=== PATIENT | female | born 1950 | race Caucasian/White ===

== ENCOUNTER → 2016-03-30 | Outpatient (CLI) | payer OTHER ==
[~2016-03-30] MED LIST: ACETAMINOPHEN-1 EAC1 PO; AQUACEL AG FOA1 EAC7 TP; ATORVASTATIN CA40 MG PO; AZOR 5-40 MG T1 EACH PO; BACLOFEN 10MG T10 MG PO; CIPRO500 MG PO; CRESTOR PO; ESTRACE0.5 MG; FENTANYL PA50 MCG/HR TRANSDERM; FLAGYL500 MG PO; GABAPENTIN 100100 MG PO; KEPPRA 500 MG500 M1 PO; LASIX 40 MG TAB40 M2 PO; LEVOTHYROXINE0.05 MG PO; LEXAPRO 10 MG T10 M1 PO; LIPITOR40 MG PO; LOTREL 5-40 MG1 EACH; MINOCIN50 MG PO; MINOCYCLINE 5050 M1; MULTI VITAMIN1 EACH PO; OMEPRAZOLE40 MG PO; OXYCODONE HCL5 M1; PERCOCET PO; PHENERGAN 25 MG25 M1 PO; PREDNISOLONE 5 M5 MG PO; TRAMADOL 50 MG50 MG PO; TRINATE TABLET1 TAB PO; TYLENOL325 MG PO; VITAMIN D 5050000 I1 PO; VITAMIN D5000 UNIT PO; VITAMINC500 PO
== END ==
LOC: HYPER 03-14 07:14
DX: L89.890 Pressure ulcer of other site, unstageable (principal); L97.521 Non-pressure chronic ulcer of other part of left foot limited to breakdown of skin; M86.472 Chronic osteomyelitis with draining sinus, left ankle and foot; M20.42 Other hammer toe(s) (acquired), left foot; I73.00 Raynaud's syndrome without gangrene; L94.0 Localized scleroderma [morphea]; Z87.891 Personal history of nicotine dependence

== ENCOUNTER → 2016-07-27 | Outpatient (CLI) | payer OTHER, MEDICARE ==
[~2016-07-27] MED LIST changes: +DAKIN'S473 M1 MUCOUS MEM; +DIOVAN 80 MG TA80 M1 PO; +NITRO-BID30 GM TD; +NORVASC5 MG PO
== END ==
LOC: HYPER 07:01
DX: S31.101A Unspecified open wound of abdominal wall, left upper quadrant without penetration into peritoneal cavity, initial encounter (principal); I73.00 Raynaud's syndrome without gangrene; L94.0 Localized scleroderma [morphea]; I10 Essential (primary) hypertension; Z87.891 Personal history of nicotine dependence; Z72.89 Other problems related to lifestyle; W06.XXXA Fall from bed, initial encounter; Y93.89 Activity, other specified; Y92.89 Other specified places as the place of occurrence of the external cause; Y99.8 Other external cause status

== ENCOUNTER 2016-10-10 19:30 | Emergency (ER) | payer OTHER, MEDICARE ==
[~2016-10-10] VITALS: Ht 172.7 cm; Wt 74.8 kg
[2016-10-10] MEDS ORDERED: NEURONTIN 300300 M1 (20:02)
[2016-10-10] MEDS ORDERED: KEFLEX500 MG PO (20:26)
[2016-10-10 20:30] VITALS: BP 144/65
== END 2016-10-10 20:42 | disposition home or self-care (01) ==
LOC: ER 19:30
DX: S51.011A Laceration without foreign body of right elbow, initial encounter (principal); S80.01XA Contusion of right knee, initial encounter; S60.412A Abrasion of right middle finger, initial encounter; F10.99 Alcohol use, unspecified with unspecified alcohol-induced disorder; Z90.710 Acquired absence of both cervix and uterus; W01.0XXA Fall on same level from slipping, tripping and stumbling without subsequent striking against object, initial encounter; Y93.01 Activity, walking, marching and hiking; Y92.89 Other specified places as the place of occurrence of the external cause; Y99.8 Other external cause status

== ENCOUNTER → 2016-10-19 | Outpatient (CLI) | payer OTHER, MEDICARE ==
[~2016-10-19] MED LIST changes: +KEFLEX500 MG PO; +NEURONTIN 300300 M1
== END ==
LOC: HYPER 07:24
DX: S51.001A Unspecified open wound of right elbow, initial encounter (principal); S61.202A Unspecified open wound of right middle finger without damage to nail, initial encounter; I73.00 Raynaud's syndrome without gangrene; L94.0 Localized scleroderma [morphea]; I10 Essential (primary) hypertension; Z87.891 Personal history of nicotine dependence; Z90.710 Acquired absence of both cervix and uterus; X58.XXXA Exposure to other specified factors, initial encounter; Y93.89 Activity, other specified; Y92.89 Other specified places as the place of occurrence of the external cause; Y99.8 Other external cause status

== ENCOUNTER → 2016-11-09 | Outpatient (CLI) | payer OTHER, MEDICARE | LOC: HYPER 07:04 | DX: S51.001D Unspecified open wound of right elbow, subsequent encounter (principal); S61.202D Unspecified open wound of right middle finger without damage to nail, subsequent encounter; I73.00 Raynaud's syndrome without gangrene; L94.0 Localized scleroderma [morphea]; I10 Essential (primary) hypertension; H26.9 Unspecified cataract; Z87.891 Personal history of nicotine dependence; Z90.710 Acquired absence of both cervix and uterus; Z72.89 Other problems related to lifestyle; W19.XXXD Unspecified fall, subsequent encounter ==

== ENCOUNTER → 2016-11-30 | Outpatient (CLI) | payer OTHER, MEDICARE | LOC: HYPER 07:01 | DX: S60.412D Abrasion of right middle finger, subsequent encounter (principal); S50.311D Abrasion of right elbow, subsequent encounter; I73.00 Raynaud's syndrome without gangrene; L94.0 Localized scleroderma [morphea]; I10 Essential (primary) hypertension; Z90.710 Acquired absence of both cervix and uterus; Z87.891 Personal history of nicotine dependence; Z72.89 Other problems related to lifestyle; X58.XXXD Exposure to other specified factors, subsequent encounter ==

== ENCOUNTER → 2016-12-05 | Outpatient (CLI) | payer OTHER, MEDICARE | LOC: MRI 09:45 | DX: M81.0 Age-related osteoporosis without current pathological fracture (principal); M86.8X8 Other osteomyelitis, other site ==

== ENCOUNTER → 2016-12-12 | Outpatient (CLI) | payer OTHER, MEDICARE | LOC: HYPER 07:04 | DX: S50.311D Abrasion of right elbow, subsequent encounter (principal); I73.00 Raynaud's syndrome without gangrene; L94.0 Localized scleroderma [morphea]; I10 Essential (primary) hypertension; Z90.710 Acquired absence of both cervix and uterus; Z98.42 Cataract extraction status, left eye; Z87.891 Personal history of nicotine dependence; Z72.89 Other problems related to lifestyle; W19.XXXD Unspecified fall, subsequent encounter ==

== ENCOUNTER → 2017-01-01 | Outpatient (CLI) | payer OTHER, MEDICARE | LOC: HYPER 07:01 | DX: S51.001D Unspecified open wound of right elbow, subsequent encounter (principal); L94.0 Localized scleroderma [morphea]; I73.00 Raynaud's syndrome without gangrene; I10 Essential (primary) hypertension; Z87.891 Personal history of nicotine dependence; X58.XXXD Exposure to other specified factors, subsequent encounter ==

== ENCOUNTER → 2017-01-09 | Outpatient (CLI) | payer OTHER, MEDICARE | LOC: ULTRA 14:25 | DX: R19.00 Intra-abdominal and pelvic swelling, mass and lump, unspecified site (principal) ==

== ENCOUNTER 2018-01-12 11:24 | Emergency (ER) | payer OTHER, MEDICARE ==
[~2018-01-12] VITALS: Ht 170.2 cm; Wt 74.8 kg
[~2018-01-12 11:24] MED LIST changes: +NORCO 5-325 TA1 EACH PO
[2018-01-12 13:04] VITALS: BP 135/79
== END 2018-01-12 13:05 | disposition home or self-care (01) ==
LOC: ER 11:24
DX: S20.211A Contusion of right front wall of thorax, initial encounter (principal); F10.10 Alcohol abuse, uncomplicated; Z90.710 Acquired absence of both cervix and uterus; Z87.891 Personal history of nicotine dependence; W18.30XA Fall on same level, unspecified, initial encounter; Y93.89 Activity, other specified; Y92.89 Other specified places as the place of occurrence of the external cause; Y99.8 Other external cause status

== ENCOUNTER → 2018-02-21 | Outpatient (CLI) | payer OTHER, MEDICARE | LOC: RAD 15:25 | DX: Z12.31 Encounter for screening mammogram for malignant neoplasm of breast (principal) ==

== ENCOUNTER 2018-08-14 12:35 | Emergency (ER) | payer OTHER, MEDICARE ==
[~2018-08-14] VITALS: Ht 170.2 cm; Wt 72.6 kg
[2018-08-14] MEDS ORDERED: LEVSIN0.125 MG PO (14:33)
[2018-08-14] MEDS ORDERED: CRESTOR40 MG PO (14:35)
[2018-08-14 17:55] VITALS: BP 134/83
--- NOTE | 2018-08-15 16:10 | EKG ---
[address] [place] [address] ELECTROCARDIOGRAM REPORT Name: CECY OVIEDO [id number] ������������������ Admission: 08/14/18 ������������������ Attend Phys: Discharge: 08/14/18 ������������������ Date of : 46 Report #: [id number] ����������������������������������������������������������������� [id number] THIS REPORT FOR: //name// [facility] ED Test Date: 2018-08-14 Test Time: 17:54:31 Pat Name: CECY OVIEDO Department: Room: Gender: F Bicycle Racer: shamika : 1950 Requested By: Arianne West Order Number: [id number] MD: Vipin Paniagua Measurements Intervals [place] Rate: 72 P: 75 IA: 171 QRS: 30 QRSD: 91 T: 38 QT: 431 QTc: 472 Interpretive Statements Sinus rhythm Ventricular premature complex RSR' in V1 or V2, right VCD Nonspecific ST segment abnormalities Compared to ECG 07/10/2017 14:52:45 No significant change Electronically Signed On 08-15-2018 16:10:42 CDT by Vipin Paniagua [email or web address] ��������������������������������������������� <ELECTRONICALLY SIGNED> ���������������������������������������� By: Vipin Paniagua MD ��������������������������������������������� 08/15/18 1610 1754 1754 MD MEHUL Mauro
== END 2018-08-14 17:55 | disposition home or self-care (01) ==
LOC: ER 12:35
DX: S06.0X0A Concussion without loss of consciousness, initial encounter (principal); S00.12XA Contusion of left eyelid and periocular area, initial encounter; Z90.710 Acquired absence of both cervix and uterus; Z87.891 Personal history of nicotine dependence; W18.39XA Other fall on same level, initial encounter; Y93.89 Activity, other specified; Y92.89 Other specified places as the place of occurrence of the external cause; Y99.8 Other external cause status

== ENCOUNTER → 2019-04-03 | Outpatient (CLI) | payer OTHER, MEDICARE ==
[~2019-04-03] MED LIST changes: +CRESTOR40 MG PO; +LEVSIN0.125 MG PO
== END ==
LOC: NUC 01:45 → MRI 13:03 → NUC 15:19
DX: Z12.31 Encounter for screening mammogram for malignant neoplasm of breast (principal); M80.88XA Other osteoporosis with current pathological fracture, vertebra(e), initial encounter for fracture; M47.816 Spondylosis without myelopathy or radiculopathy, lumbar region; M48.061 Spinal stenosis, lumbar region without neurogenic claudication; M71.38 Other bursal cyst, other site

== ENCOUNTER → 2019-11-17 | Outpatient (CLI) | payer OTHER | LOC: MRI 14:06 | PROVIDERS: ATTEND Physical Medicine & Rehabilitation Sports Medicine | DX: M51.34 Other intervertebral disc degeneration, thoracic region (principal); M47.814 Spondylosis without myelopathy or radiculopathy, thoracic region; M48.54XA Collapsed vertebra, not elsewhere classified, thoracic region, initial encounter for fracture; M40.04 Postural kyphosis, thoracic region; M25.78 Osteophyte, vertebrae; M48.04 Spinal stenosis, thoracic region ==

== ENCOUNTER → 2020-01-27 | Outpatient (CLI) | payer OTHER, MEDICARE | LOC: CAT 07:48 | PROVIDERS: ATTEND Internal Medicine Rheumatology | DX: R91.1 Solitary pulmonary nodule (principal); I25.10 Atherosclerotic heart disease of native coronary artery without angina pectoris; M34.9 Systemic sclerosis, unspecified ==

== ENCOUNTER → 2020-04-13 | Outpatient (CLI) | payer OTHER, MEDICARE | LOC: BC 09:42 | PROVIDERS: ATTEND Nurse Practitioner Obstetrics & Gynecology | DX: Z12.31 Encounter for screening mammogram for malignant neoplasm of breast (principal) ==

== ENCOUNTER → 2020-10-04 | Outpatient (CLI) | payer OTHER, MEDICARE | LOC: RAD 16:03 | PROVIDERS: ATTEND Family Medicine | DX: R10.84 Generalized abdominal pain (principal); R06.02 Shortness of breath; I70.0 Atherosclerosis of aorta ==

== ENCOUNTER → 2020-10-27 | Outpatient (CLI) | payer OTHER, MEDICARE | LOC: SJCVC 14:19 | PROVIDERS: ATTEND Internal Medicine | DX: R94.31 Abnormal electrocardiogram [ECG] [EKG] (principal); R06.02 Shortness of breath; M34.1 CR(E)ST syndrome; I12.9 Hypertensive chronic kidney disease with stage 1 through stage 4 chronic kidney disease, or unspecified chronic kidney disease; N18.32 Chronic kidney disease, stage 3b; E83.110 Hereditary hemochromatosis; E78.5 Hyperlipidemia, unspecified; E78.00 Pure hypercholesterolemia, unspecified; Z90.49 Acquired absence of other specified parts of digestive tract; Z79.899 Other long term (current) drug therapy; Z87.891 Personal history of nicotine dependence ==

== ENCOUNTER → 2020-11-11 | Outpatient (CLI) | payer OTHER, MEDICARE | LOC: SJCVCIMAG 09:59 | PROVIDERS: ATTEND Internal Medicine | DX: R06.02 Shortness of breath (principal); E78.5 Hyperlipidemia, unspecified; I10 Essential (primary) hypertension; Z87.891 Personal history of nicotine dependence; Z79.899 Other long term (current) drug therapy ==

== ENCOUNTER 2020-12-12 15:03 | Emergency (ER) | payer OTHER, MEDICARE ==
[~2020-12-12] VITALS: Ht 170.2 cm; Wt 65.8 kg
[2020-12-12 16:16] LABS: HEMATOCRIT 43.5 % (37.0-47.0); HEMOGLOBIN 14.4 gm/dL (12.0-15.0); MCH 32.5 pg (26.0-34.0); MCV 98.6 fL (80.0-100.0); RBC 4.41 mil/uL (4.20-5.00); RDW 13.4 % (10.5-14.5); WBC 6.7 thou/uL (4.0-11.0)
[2020-12-12 16:29] LABS: URINE BILIRUBIN NEGATIVE (Negative); URINE BLOOD 2+ (Negative); URINE CLARITY SL CLOUDY; URINE COLOR YELLOW; URINE GLUCOSE-RANDOM* NEGATIVE (Negative); URINE KETONES NEGATIVE (Negative); URINE LEUKOCYTES-REFLEX TRACE (Negative); URINE NITRITE-REFLEX NEGATIVE (Negative); URINE PROTEIN (DIPSTICK) TRACE (Negative); URINE SPECIFIC GRAVITY 1.015 (1.005-1.035); URINE UROBILINOGEN 0.2 E.U./dl (0.2-1.0)
[2020-12-12 16:37] LABS: CALCIUM 9.2 mg/dL (8.5-10.1); CREATININE 2.2 mg/dL (0.6-1.0); POTASSIUM 3.2 mmol/L (3.5-5.1)
[2020-12-12 16:51] LABS: ALBUMIN 2.7 g/dL (3.4-5.0); TOTAL BILIRUBIN 0.5 mg/dL (0.2-1.0); TOTAL PROTEIN 6.1 g/dL (6.4-8.2)
[2020-12-12 16:54] LABS: SQUAMOUS 4-10 Moderate /LPF (0-3)
[2020-12-12 16:55] LABS: URINE RBC 3-10 Few /HPF (NONE SEEN); URINE WBC-REFLEX 0-5 Rare /HPF (0-5)
[2020-12-12 16:56] LABS: BACTERIA-REFLEX 1-9 Few /HPF (None Seen); CRYSTALS None Seen /LPF (None Seen)
[2020-12-12 19:26] LABS: CALCIUM 8.7 mg/dL (8.5-10.1); POTASSIUM 3.3 mmol/L (3.5-5.1)
[2020-12-12 20:17] VITALS: BP 121/65
== END 2020-12-12 20:18 | disposition home or self-care (01) ==
LOC: ER 15:03
PROVIDERS: Nurse Practitioner Family
DX: E87.1 Hypo-osmolality and hyponatremia (principal); R19.7 Diarrhea, unspecified; R10.84 Generalized abdominal pain; N18.4 Chronic kidney disease, stage 4 (severe); Z90.710 Acquired absence of both cervix and uterus; Z79.899 Other long term (current) drug therapy; Z88.1 Allergy status to other antibiotic agents; Z87.891 Personal history of nicotine dependence

== ENCOUNTER 2021-02-21 15:30 | Inpatient (IN) | payer OTHER, MEDICARE ==
[~2021-02-21] VITALS: Ht 167.6 cm; Wt 61.5 kg
[2021-02-21 15:48] VITALS: BP 105/62
[2021-02-21] MEDS ORDERED: BACTRIM DS TAB1 EACH PO (16:26)
[2021-02-21] MEDS ORDERED: OXYCODONE-APAP1 EAC4 PO (16:27)
[2021-02-21] MEDS ORDERED: NEURONTIN 300M300 M2 PO (16:27)
[2021-02-21] MEDS ORDERED: FLEXERIL PO (16:28)
[2021-02-21] MEDS ORDERED: FAMOTIDINE40 MG PO (16:28)
[2021-02-21 18:31] LABS: HEMATOCRIT 39.6 % (37.0-47.0); HEMOGLOBIN 13.4 gm/dL (12.0-15.0); MCH 32.9 pg (26.0-34.0); MCHC 33.8 g/dL (28.0-37.0); MCV 97.5 fL (80.0-100.0); PLATELET COUNT 231 thou/uL (150-400); RBC 4.06 mil/uL (4.20-5.00); RDW 15.3 % (10.5-14.5); WBC 20.8 thou/uL (4.0-11.0)
[2021-02-21 18:47] LABS: CALCIUM 9.1 mg/dL (8.5-10.1); CREATININE 4.5 mg/dL (0.6-1.0); POTASSIUM 4.2 mmol/L (3.5-5.1)
[2021-02-21 18:57] LABS: MAGNESIUM 2.1 mg/dL (1.8-2.4); TOTAL BILIRUBIN 0.4 mg/dL (0.2-1.0)
[2021-02-21 20:14] LABS: ABSOLUTE NEUTROPHILS 18.5 thou/uL (1.4-8.2); PLATELET ESTIMATE NORMAL
[2021-02-21 20:27] LABS: URINE BILIRUBIN NEGATIVE (Negative); URINE BLOOD 1+ (Negative); URINE CLARITY CLEAR; URINE COLOR YELLOW; URINE GLUCOSE-RANDOM* NEGATIVE (Negative); URINE KETONES NEGATIVE (Negative); URINE LEUKOCYTES-REFLEX NEGATIVE (Negative); URINE NITRITE-REFLEX NEGATIVE (Negative); URINE PROTEIN (DIPSTICK) TRACE (Negative); URINE SPECIFIC GRAVITY 1.025 (1.005-1.035); URINE UROBILINOGEN 0.2 E.U./dl (0.2-1.0)
[2021-02-21 20:29] LABS: SQUAMOUS 0-3 Few /LPF (0-3); URINE WBC-REFLEX None Seen /HPF (0-5)
[2021-02-21 20:30] LABS: BACTERIA-REFLEX None Seen /HPF (None Seen); CRYSTALS None Seen /LPF (None Seen); FINE GRANULAR CASTS 0-3 Few /LPF (None Seen); URINE RBC 1-2 Rare /HPF (NONE SEEN)
[2021-02-21 20:31] LABS: COARSE GRANULAR CASTS 0-3 Few /LPF (None Seen)
[2021-02-22 02:44] LABS: HCO3 14.8 mmol/L (22.0-26.0); PCO2 26.7 mmHg (35.0-45.0); PO2 111.6 mmHg (80.0-100.0); pH 7.362 (7.360-7.450)
[2021-02-22 06:56] VITALS: BP 135/73
--- NOTE | 2021-02-22 07:17 | EKG ---
[address] [place] [address] ELECTROCARDIOGRAM REPORT Name: CECY OVIEDO Room #: 170-3 ADM IN M.R.#: [id number] Admission: 02/21/21 Attend Phys: Tae Recio MD Discharge: Date of : 46 Report #: [id number] [facility] ED Test Date: 2021-02-21 Test Time: 17:54:58 Pat Name: CECY PREET Department: Room: 170 Gender: F Education Instructor: amira : 1950 Requested By: Jaz Orellana Order Number: [id number] MD: Georges Villatoro Measurements Intervals [place] Rate: 106 P: 75 CO: 182 QRS: -57 QRSD: 66 T: 9 QT: 390 QTc: 518 Interpretive Statements Sinus tachycardia Abnormal R-wave progression, early transition Borderline repolarization abnormality Compared to ECG 08/14/2018 17:54:31 Sinus rhythm no longer present Ventricular premature complex(es) no longer present Electronically Signed On 02-22-2021 7:17:28 BRUSHER MACHINE by Georges Villatoro [email or web address] <ELECTRONICALLY SIGNED> By: Georges Villatoro MD, [facility] 02/22/21 0717 53 53 Georges Villatoro MD, [facility] /EPI
[2021-02-22 10:11] VITALS: BP 123/77
[2021-02-22 10:34] VITALS: BP 124/70
[2021-02-22 11:50] LABS: CALCIUM 7.9 mg/dL (8.5-10.1); CALCIUM 8.3 mg/dL (8.5-10.1); CREATININE 4.3 mg/dL (0.6-1.0); POTASSIUM 3.9 mmol/L (3.5-5.1); POTASSIUM 4.1 mmol/L (3.5-5.1)
[2021-02-22 11:54] LABS: ALBUMIN 1.7 g/dL (3.4-5.0); PHOSPHORUS 4.7 mg/dL (2.5-4.9)
[2021-02-22 12:16] LABS: BE(vivo) -5.8 mmol/L (-2 to +3); HCO3 18.4 mmol/L (22.0-26.0); PCO2 31.9 mmHg (35.0-45.0); PO2 124.7 mmHg (80.0-100.0); pH 7.378 (7.360-7.450); sO2 98.5 % (92.0-98.0)
--- NOTE | 2021-02-22 13:24 | EKG ---
[address] [address] ELECTROCARDIOGRAM REPORT Name: PREETCECY Room #: 442-P ADM IN M.R.#: [id number] Admission: 02/21/21 Attend Phys: Tae Recio MD Discharge: Date of : 46 Report #: [id number] [facility] ED Test Date: 2021-02-22 Test Time: 07:26:20 Pat Name: CECY OVIEDO Department: Room: 442 Gender: F Reworker: SACHIN : 1950 Requested By: Tae Recio Order Number: [id number] MD: Georges Villatoro Measurements Intervals [place] Rate: 132 P: 93 [place]: 173 QRS: -61 QRSD: 84 T: 46 QT: 300 QTc: 445 Interpretive Statements Sinus tachycardia Atrial premature complex Inferior infarct, old Compared to ECG 02/21/2021 17:54:58 Atrial premature complex(es) now present Electronically Signed On 02-22-2021 13:24:48 PROFESSIONAL SOCCER PLAYER by Georges Villatoro [email or web address] <ELECTRONICALLY SIGNED> By: Georges Villatoro MD, [facility] 02/22/21 1324 D: 11/725 5 Georges Villatoro MD, FAC /EPI
[2021-02-22 13:39] LABS: HEMATOCRIT 36.8 % (37.0-47.0); HEMOGLOBIN 11.8 gm/dL (12.0-15.0); MCH 31.8 pg (26.0-34.0); MCHC 32.2 g/dL (28.0-37.0); MCV 98.9 fL (80.0-100.0); PLATELET COUNT 202 thou/uL (150-400); RBC 3.72 mil/uL (4.20-5.00); RDW 15.5 % (10.5-14.5); WBC 25.4 thou/uL (4.0-11.0)
[2021-02-22 14:42] LABS: ABSOLUTE NEUTROPHILS 23.9 thou/uL (1.4-8.2)
--- NOTE | 2021-02-22 14:45 | NUR ---
She Out of room for test. New to unit today from ED. Called her spouse # [phone], that is his work number and is not there today. Other number for her spouse listed in not at working number. Noted she been having some declines at home, falls and pain. using wheel chair at home. Son has moved in to help out his mom. Will cont following as needed for dc needs.
[2021-02-22 16:30] VITALS: BP 110/54
--- NOTE | 2021-02-22 17:53 | NUR ---
PATIENT ADMIT TO [facility] AT 1040. AWAKE, LETHARGIC. TOLERATED ON 3L/NC. VSS, AFEBRILE. WOUND PICS TOOK. FAMILY AT BED SIDE. ST ON MONITOR, WILL KEEP MONITOR.
[2021-02-22 21:06] LABS: COMPLEMENT-C3 133 mg/dL (82-167); COMPLEMENT-C4 25 mg/dL (12-38)
[2021-02-22 21:30] VITALS: BP 110/55
[2021-02-22 22:46] LABS: INR 1.14; PROTIME 12.3 Seconds (10.5-12.1)
[2021-02-23 01:26] LABS: HEMATOCRIT 33.6 % (37.0-47.0); HEMOGLOBIN 10.9 gm/dL (12.0-15.0); MCH 32.2 pg (26.0-34.0); MCHC 32.6 g/dL (28.0-37.0); MCV 98.9 fL (80.0-100.0); RBC 3.4 mil/uL (4.20-5.00); RDW 15.3 % (10.5-14.5); WBC 24.5 thou/uL (4.0-11.0)
[2021-02-23 01:30] LABS: CALCIUM 7.4 mg/dL (8.5-10.1); CREATININE 4.2 mg/dL (0.6-1.0); POTASSIUM 4.2 mmol/L (3.5-5.1)
--- NOTE | 2021-02-23 06:10 | NUR ---
AT BEGINNING OF HS SHIFT PATIENT IS RECEIVING A ARTERIAL SCAN. WHILE PERFORMING TECH NOTED THAT PATIENT HAD A CLOT IN THE LEFT GROIN AREA. ORDER WAS ENTERED TO ALSO DO A VENOUS ULTRASOUND. NOTED ADDITIONAL BLOOD CLOT BEHING RIGHT KNEE AREA. NOTIFIED SUPERVISOR ELECTRONICS ASSEMBLY REGARDING OF FINDINGS. ALSO NOTIFIED ZEB. RECEIVED ORDERS TO START HEPARIN DRIP. PATIENT IS DISORIENTED AND VERY LETHARGIC. SHE IS 94% ON 3L. SHE IS BREATHING ABOUT 24-26 RPM. PATIENT IS UNABLE TO FOLLOW SIMPLE COMMANDS OR INSTRUCTIONS. APPROXIMATELTY 0430 PATIENT APPEARS TO BE EXPERIENCING SOME AUDIO HALLUCINATIONS. SHE IS CALLING FOR SOMEBODY THAT IS NOT PRESENT IN ROOM. PATIENT WILL OPEN HER EYES NOW BUT REMAINS VERY CONFUSED. SHE CAN NOT FORM COMPLETE SENTENCES. SHE APPEARS TO BE IN PAIN AND STATES THAT HER LEG HURTS. NOTIFIED SUPERVISOR ELECTRON[employer] ASSEMBLY PRESCHOOL HEAD TEACHER AND RECEIVED ORDER FOR FENTANYL. 0600 PATIENT CONTINUES TO MOAN AND TALK NOT MAKING SENSE. HER VITALS REMAIN STABLE. ATTEMPTED TO GIVE PATIENT SOME WATER BUT SHE IS UNABLE TO DECIPHER THE STRAW. CLEANSED PATIENT WOUNDS. WILL CONTINUE TO MONITOR.
[2021-02-23 06:33] VITALS: BP 117/64
[2021-02-23 07:26] VITALS: BP 99/49
[2021-02-23 10:08] LABS: ANA INTERPRETATION Positive (Negative)
--- NOTE | 2021-02-23 10:58 | NUR ---
A/O X 1 SELF. BEDOUND. 3 L O2 VIA NASAL CANNULA. LEFT FOEARM AND LEFT WRIST IV. LEFT WRIST HAS HEPARIN INFUSION @ 17 MLS/KG/HR. APTT RECHECK @ 0600 49.1, NEXT RECHECK IS AT NOON. SR ON TELE. BUTTOCK WOUND BETADINE APPILED, RIGHT GREAT TOE NECROTIC AND BOTTOM OF FOOT NECROTIC, MUMBLES RESPONSES, KEEPS EYES CLOSE. NS INFUSING @ 150 MLS/HR. HUGO IN PLACE- URINE YELLOW. REQUESTED TRANSFER TO CCU WHERE SHE CAN BE MONITORED CLOSER AND AWAITING BED ON CCU. MRI OF LUMBAR SPINE REQUIRES THAT THE PATIENT IS TURNED OFF OF IV PUMP FOR AROUND 40 MINS, DR. MELCHOR PAGED TO MAKE AWARE OF THIS AND TO SEE OF IF IT CAN BE POSTPONE TILL PATIENT IS OFF OF HEAPARIN DRIP. AWAITING CALL BACK.
--- NOTE | 2021-02-23 11:02 | 2DMMODE ---
[facility] [place] [address] 2 D/M-MODE ECHOCARDIOGRAM Name: CECY OVIEDO ANN Room #: 442-P ADM IN M.R.#: [id number] Admission: 02/21/21 Attend Phys: Tae Recio MD Discharge: Date of : 46 Report #: [id number] THIS REPORT FOR: cc: Ileana Roman MD, Nora P. MD Santiago, Patrick MD [facility] ~ APPROVED REPORT Study performed: 02/23/2021 09:19:53 EXAM: Comprehensive 2D, Doppler, and color-flow Echocardiogram Patient Location: Bedside Room #: 442 Status: routine BSA: 1.63 HR: 98 bpm BP: 99/49 mmHg Rhythm: NSR Other Information Study Quality: Adequate Indications Congestive Heart Failure Dyspnea Hypertension/HDD 2D Dimensions RVDd: 32.11 mm IVSd: 9.68 (7-11mm) LVOT Diam: 20.66 (18-24mm) LVDd: 39.96 mm PWd: 9.63 (7-11mm) Ascending Ao: 26.63 (22-36mm) LVDs: 30.56 (25-40mm) Left Atrium: 32.30 (27-40mm) Aortic Root: 28.85 mm IVC: 25.00 mm Volumes Left Atrial Volume (Systole) Single Plane 4CH: 28.70 mL Single Plane 2CH: 32.55 mL LA ESV Index: 21.00 mL/m2 Aortic Valve AoV Peak Osorio.: 1.45 m/s AO Peak Gr.: 8.36 mmHg LVOT Max P.74 mmHg [facility] [address] [address] 2 D/M-MODE ECHOCARDIOGRAM Name: CECY OVIEDO Room #: 442-P [facility] IN ..#: [id number] Admission: 02/21/21 Attend Phys: Stoney Leo Discharge: Date of : 46 Report #: [id number] LVOT Max V: 0.97 m/s JADA Vmax: 2.24 cm2 Mitral Valve E/A Ratio: 0.9 MV Decel. Time: 295.66 ms MV E Max Osorio.: 0.68 m/s MV A Osorio.: 0.79 m/s MV PHT: 85.74 ms IVRT: 124.57 ms Pulmonary Valve PV Peak Osorio.: 0.87 m/s PV Peak Gr.: 3.02 mmHg Pulmonary Vein P Vein S: 0.27 m/s P Vein A: 0.24 m/s P Vein D: 0.26 m/s P Vein A Dur.: 93.4 msec P Vein S/D Ratio: 1.04 Tricuspid Valve TR Peak Osorio.: 2.45 m/s TR Peak Gr.: 23.93 mmHg PA Pressure: 34.00 mmHg Left Ventricle The left ventricle is normal size. There is normal left ventricular wall thickness. Left ventricular systolic function is mildly decreased. LVEF is 45%. Grade I - abnormal relaxation pattern. Right Ventricle The right ventricle is normal size. The right ventricular systolic function is normal. Atria The left atrium size is normal. The right atrium size is normal. Aortic Valve The aortic valve is normal in structure. No aortic regurgitation is present. There is no aortic valvular stenosis. Mitral Valve The mitral valve is normal in structure. Trace mitral regurgitation. No evidence of mitral valve stenosis. Tricuspid Valve [facility] [address] [place] [address] 2 D/M-MODE ECHOCARDIOGRAM Name: CECY OVIEDO Room #: 442-P ADM IN .R.#: [id number] Admission: 02/21/21 Attend Phys: Stoney Leo Discharge: Date of : 46 Report #: [id number] The tricuspid valve is normal in structure. There is trace tricuspid regurgitation. Estimated PAP 34mmHg. There is mild pulmonary hypertension. Pulmonic Valve The pulmonary valve is normal in structure. There is no pulmonic valvular regurgitation. Great Vessels The aortic root is normal in size. IVC is dilated and collapses <50% with inspiration. Pericardium There is no pericardial effusion. <Conclusion> Normal left ventricle size/wall thickness Mild global hypokinesis ejection fraction 45% Grade 1 diastolic dysfunction Normal right ventricle size/function Normal atrial size Normal aortic/mitral valve structure and function Trace tricuspid valve insufficiency Pulmonary systolic pressure estimated 34 mmHg Normal aortic root size No pericardial effusion <ELECTRONICALLY SIGNED> By: Georges Villatoro MD, FACC 02/23/211101 01 01 Georges Villatoro MD, FACC /INF
[2021-02-23 11:06] VITALS: BP 112/56
--- NOTE | 2021-02-23 13:39 | NUR ---
CRITICAL APTT 89.8 @ 2498. DR. MELCHOR PAGED FOR MAKE AWARE. PER HERPARIN PROTOCAL DRIP REDUCED BY 2 UNITS FROM 17 ML/KG/HR TO 15 MLS/KG/HR. LAURI BERMAN AT BEDSIDE TO CONFIRM THE CHANGE IN RATE. AWAITING CALL BACK FROM DR. MELCHOR. NURSE LOKIE ENGINEER IRINEO CALLED TO MAKE AWARE OF CRITICAL LAB AND PAGE .
[2021-02-23 16:06] VITALS: BP 121/70
--- NOTE | 2021-02-23 17:19 | NUR ---
Case opened to follow for dc planning. Call Center Analyst spoke with pt's spouse Joie this afternoon as he is at bedside. Contact number is their home phone [phone]. Pt was transfered to CCU this afternoon and is on a heprin gtt. She was admitted with JONNY,DVTs and weakness. Her pcp is Dr. Ileana Roman. She has not seen her for some time. Spouse and pt's sister Luci Wallace have been providing care at home and notes a sign decline in function over the past couple of months. They do not leave the pt alone and she has started using a w/c. She can sit her self up on the edge of the bed then her spouse "gets her into the w/c". He notes that they have 2 steps into the home and they can live on the main level. She has bars in the bathroom and has needed increased help with adl's along with gait. He drives and still manages his own business ([employer]) but is at home most of the time with her. Their son Isrrael is here for a few weeks to visit from out of state. Pt's spouse denies any HH, SNF or rehab needs in the past. He states that she will definately need rehab after all this. Acute rehab and SNF discussed. [facility] is following along but therapy evals are on hold due to heprin gtt. Support provided. Pt's spouse to bring in phone numbers for her sister Luci and son Arvind as they are both non working numbers on the chart.
--- NOTE | 2021-02-23 17:20 | HC ---
[facility] [place] [address] CONSULTATION Name: PREETCECY Room #: 208-P ADM IN M.R.#: [id number] Admission: 02/21/21 Attend Phys: Tae Recio MD Discharge: Date of : 46 Report #: [id number] THIS REPORT FOR: cc: Ileana Roman MD, Nora P. MD Althoff, Jeffrey R. MD ~ DATE OF SERVICE: 02/22/2021 CHIEF COMPLAINT: Bilateral lower extremity ulcerations. HISTORY OF PRESENT ILLNESS: This is a 70-year-old female patient who presented to the Emergency Department with increasing weakness and decreased level of consciousness. She was noted to have ulcerations on her feet. I have been asked to see her with regard to wound care. Her is present here in the room, although not able to provide a lot of information. Her son is also present. She has had some decline recently at home and is currently being evaluated. She is not able to provide any information about herself. Per the admitting records, she has a history of chronic kidney disease stage 4, Raynaud's phenomenon, hypertension, hypothyroidism, hyperlipidemia, scleroderma, subarachnoid hemorrhage, CREST syndrome, history of thyroid nodules and depression, possibly some history of pulmonary hypertension. SOCIAL HISTORY: The patient lives at home with her . Uses a wheelchair. No alcohol or tobacco use noted. ALLERGIES: TO CIPRO. MEDICATIONS: Include amlodipine, cyclobenzaprine, ergocalciferol, escitalopram, famotidine, furosemide, gabapentin, levothyroxine, minocycline, Crestor, Bactrim-DS, valsartan. REVIEW OF SYSTEMS: Not obtainable due to the patient's condition. PHYSICAL EXAMINATION: VITAL SIGNS: The patient's vital at this time include temperature 35.6, pulse 121, respiration of 22, blood pressure 124/70. GENERAL: This is a very frail-appearing female patient who appears to have decreased level of consciousness. HEENT: Head is normocephalic. NECK: Supple. LUNGS: Diminished. HEART: Tachycardic. ABDOMEN: Soft, nontender. EXTREMITIES: Lower extremities demonstrate diminished distal pulses. She has dry scaly skin. There is an ulceration and some eschar involving the right great toe plantar aspect as well as the lateral foot and heel. She has a stage [facility] [address] [place] [address] CONSULTATION Name: PREETCECY Room #: 208-P [facility] IN M.R.#: [id number] Admission: 02/21/21 Attend Phys: Tae Recio MD Discharge: Date of : 46 Report #: [id number] I pressure ulceration to the sacral-gluteal region with nonblanching erythema. LABORATORY STUDIES: Include sodium 134, potassium 3.9, chloride 101, CO2 of 19, BUN 53, creatinine 4.3, glucose 92, sodium 128, potassium 4.2, chloride 96. White blood cell count 20,000 with a hemoglobin of 13.4. CLINICAL IMPRESSION: 1. Vascular type ulceration to the right great toe and lateral foot and heel. 2. Stage I pressure ulceration of the sacral-gluteal region. 3. Sepsis. 4. Acute kidney injury versus chronic kidney disease. 5. Generalized debility. 6. Urinary retention. 7. Scleroderma. 8. Hypothyroidism. 9. Severe protein-calorie malnutrition with albumin 1.7. RECOMMENDATIONS: At this point in time, we will recommend Betadine paint to the areas of eschar involving the feet. We will recommend PRAFO boots for pressure prophylaxis. Check arterial Dopplers. She would not be able to at least in the short term have any sort of angiography as I think her renal function would prohibit the use of contrast presently. Recommend barrier cream to the sacral-gluteal region. She will need a low air loss mattress with q. 2 hour turning and positioning. Continue nutritional support. I appreciate being asked to see her in consultation. <ELECTRONICALLY SIGNED> By: Kwesi Zavala MD 02/23/21 1720 1024 1109 Kwesi Zavala MD /nt
[2021-02-23 18:38] LABS: BE(vivo) -10.1 mmol/L (-2 to +3); HCO3 14.6 mmol/L (22.0-26.0); PCO2 28.7 mmHg (35.0-45.0); PO2 107.3 mmHg (80.0-100.0); sO2 97.6 % (92.0-98.0)
[2021-02-23 18:40] LABS: pH 7.333 (7.360-7.450)
--- NOTE | 2021-02-23 19:45 | NUR ---
Pt received to room 208 from 4S around approx. 1600. Pt on 3L NC, crackles, tachypneic. SR/ ST w/ 1AVB on the monitor. Received pt on heparin gtt at 15u/kg/hr. Received pt on 150mL NS, however order this morning changed to 75mL. Notified Dr Recio, per Dr. d/c fluids. Per nephrology, give 1x dose of lasix 60mg IV. Received orders for repeat ABG & CXR d/t change in status from provider. Pt oriented to self or disoriented x4, does not finish sentences when asked questions. Pt cries in room c/o pain & states that people are hurting her when no one is touching her. PRN IV pain medication order received. Pt has wounds to rt grt toe, rt pad of toe, rt heel, redness on buttocks & lt arm.
[2021-02-23 20:00] VITALS: BP 129/86
--- NOTE | 2021-02-23 23:41 | HC ---
[facility] [place] [address] CONSULTATION Name: CECY OVIEDO ANN Room #: 208-P [facility] IN .R.#: [id number] Admission: 02/21/21 Attend Phys: Tae Recio MD Discharge: Date of : 46 Report #: [id number] THIS REPORT FOR: cc: Ileana Roman MD, Nora P. MD Geha, Daniel J. MD ~ DATE OF SERVICE: 02/23/2021 INFECTIOUS DISEASE CONSULTATION REASON FOR CONSULTATION: I was asked to evaluate concerning leukocytosis. HISTORY OF PRESENT ILLNESS: The patient is a 70-year-old who presented to the emergency room on 02/21/2021 with lower extremity weakness, back pain in the setting of chronic kidney disease, scleroderma, hypertension. Over the subsequent 2 days, she has had persistent leukocytosis over 20,000 along with delirium. She has received high dose corticosteroids for her acute on chronic kidney disease with a creatinine up to 4.2. Prior to this, she was on 10 mg of prednisone and given stress steroids on admission. She is now on methylprednisolone 125 mg q.i.d. She has evidence of right lower extremity ischemia and has been on a heparin drip. She remains on oxygen per nasal cannula with CT scan showing bilateral interstitial infiltrates. She denies any cough or sputum production. No chest pain or palpitations. Echocardiogram has revealed mild global hypokinesis with an EF of 45%. She has an MRI scan of her back that is pending. She has previously undergone steroid injection. She had urinary retention and a Sanon catheter has been placed. No change in her scleroderma. She has had persistent ulcers to her right foot. The patient denied any other specific complaints. REVIEW OF SYSTEMS: A 14-point review was negative other than what has been described above. PAST MEDICAL HISTORY: Stage IV chronic kidney disease, scleroderma, Raynaud's, hypertension, hypothyroidism, hyperlipidemia, subarachnoid hemorrhage, CREST syndrome, thyroid nodules, depression, hysterectomy, repair of prolapsed uterus. FAMILY HISTORY: No report of tuberculosis. SOCIAL HISTORY: Lives with her . No current drug or alcohol use. There is report of alcoholism prior to December of this year. ALLERGIES: CIPRO. MEDICATIONS: As noted on her MAR, which were reviewed. [address] [address] CONSULTATION Name: CECY OVIEDO ANN Room #: 208-P [facility] IN M.R.#: [id number] Admission: 02/21/21 Attend Phys: Tae Recio MD Discharge: Date of : 46 Report #: [id number] PHYSICAL EXAMINATION: VITAL SIGNS: She is afebrile and hemodynamically stable. She is alert, delirious, yelling out. SKIN: Dry with evidence of xerosis. She had several ischemic wounds to her right foot and heel. These were treated with Betadine. No cellulitis. No palpable adenopathy. She was frail and thin. HEENT: Eyes without scleral icterus. Mouth without mucositis. NECK: Supple. LUNGS: Few crackles posteriorly throughout the lungs. No consolidation. HEART: Regular, without murmur, gallop or rub. ABDOMEN: Soft and nontender with no hepatosplenomegaly or mass. GENITALIA: External genitalia without lesion. RECTAL: Examination not performed. BACK: Spine was tender in the mid lower lumbar region. No mass appreciated. No surrounding erythema. EXTREMITIES: Strength in her lower extremities, generalized weakness, which was nonfocal. LABORATORY DATA: Reviewed. MICROBIOLOGY: Reviewed. IMAGING: CT imaging reviewed including chest, abdomen, lumbar spine and head. MRI scan, not yet available. IMPRESSION: Leukocytosis in the setting of scleroderma, right lower extremity ischemic change of her foot, acute on chronic kidney disease, bilateral pulmonary infiltrates, urinary retention, compression fractures to her spine and delirium. Combination of causes all contributing. High dose corticosteroids would also be a factor. RECOMMENDATION: We will continue broad antibiotic coverage pending culture results. C. difficile PCR has been obtained from her stools. We will await MRI scan of her spine. Continue wound care for her lower extremity ischemia. Obtain sputum sample and urine antigens along with PCR for respiratory pathogens. <ELECTRONICALLY SIGNED> By: Dwaine Finney MD 02/23/21 2341 10 09 Dwaine Finney MD /nt
[2021-02-24 03:22] VITALS: BP 148/83
[2021-02-24 08:21] VITALS: BP 120/79
[2021-02-24 09:15] LABS: HEMATOCRIT 34.1 % (37.0-47.0); MCH 31.9 pg (26.0-34.0); MCHC 32.1 g/dL (28.0-37.0); MCV 99.2 fL (80.0-100.0); RBC 3.44 mil/uL (4.20-5.00); RDW 15.8 % (10.5-14.5); WBC 18.5 thou/uL (4.0-11.0)
[2021-02-24 09:42] LABS: CALCIUM 6.9 mg/dL (8.5-10.1); CREATININE 4.1 mg/dL (0.6-1.0); POTASSIUM 3.9 mmol/L (3.5-5.1)
[2021-02-24 12:18] VITALS: BP 87/63
--- NOTE | 2021-02-24 13:09 | NUR ---
Palliative care consult this am. Pt now on comfort measures with spouse/son and sister at bedside. Preference for [facility] eval requested per family. Their second choice would be [facility] eval. Referral faxed and called to Brad. They will f/u with the family and unit cm this afternoon.
--- NOTE | 2021-02-24 17:24 | NUR ---
Spoke with family at bedside to alert [facility] RN to arrive between 5-5:30 for eval. Family at bedside. Updated RN
--- NOTE | 2021-02-25 07:46 | EKG ---
[address] [place] [address] ELECTROCARDIOGRAM REPORT Name: CECY OVIEDO Room #: 208-P ADM IN M.R.#: [id number] Admission: 02/21/21 Attend Phys: Tae Recio MD Discharge: Date of : 46 Report #: [id number] [facility] Test Date: 2021-02-24 Test Time: 08:29:18 Pat Name: CECY OVIEDO Department: Room: 208 P Gender: F Customer Greeter: FSCHWALBE : 1950 Requested By: Tae Recio Order Number: [id number] MD: Albin Cheung Measurements Intervals [place] Rate: 127 P: OK: QRS: -45 QRSD: 91 T: 58 QT: 365 QTc: 531 Interpretive Statements Sinus tachycardia Left anterior fascicular block Right ventricular conduction delay Nonspecific ST and T wave abnormality Prolonged QT interval Compared to ECG 02/22/2021 07:26:20 Inferior Q waves are less prominent Electronically Signed On 02-25-2021 7:46:46 WEED THINNER by Albin Cheung [email or web address] <ELECTRONICALLY SIGNED> By: Albin Cheung MD, [facility] 02/25/21 0746 8 Albin Cheung MD, [facility] /EPI
--- NOTE | 2021-02-25 11:31 | NUR ---
Nutrition: pt is now comfort measures, deferring eval.
--- NOTE | 2021-02-25 12:25 | NUR ---
CHART REVIEWED AND SPOKE WITH RNSUSANA. PER RN, PATIENT AND FAMILY HAVE ELECTED COMFORT MEASURES ONLY AND pt PLANNING TO DC TO [facility] VS INPATIENT COMFORT MEASURES. PLEASE DISCONTINUE PT SERVICES AT THIS TIME D/T TERMINAL NATURE OF THIS PATIENT'S CRITICAL ILLNESS AND INAPPROPRAITENESS FOR SKILLED PT INTERVENTIONS AT THIS TIME. PLEASE RECONSULT IF PATIENT NEEDS CHANGE.
--- NOTE | 2021-02-25 15:32 | NUR ---
Patient has trasitioned to inpatient hospice at [facility] with [facility].
== END 2021-02-25 18:56 | disposition hospice, inpatient (51) | DRG 871 ==
LOC: ER 15:30 → 2N 23:26 → 4S 23:26 → EROBS 23:26 → 4S 02-22 10:39 → 2N 02-23 15:49
PROVIDERS: Internal Medicine Nephrology; Nurse Practitioner Family; ADMIT Hospitalist; ATTEND Hospitalist
DX: A41.9 Sepsis, unspecified organism (principal); J96.01 Acute respiratory failure with hypoxia; E43 Unspecified severe protein-calorie malnutrition; J18.9 Pneumonia, unspecified organism; N17.9 Acute kidney failure, unspecified; E87.1 Hypo-osmolality and hyponatremia; N18.4 Chronic kidney disease, stage 4 (severe); I96 Gangrene, not elsewhere classified; M31.9 Necrotizing vasculopathy, unspecified; I50.40 Unspecified combined systolic (congestive) and diastolic (congestive) heart failure; M48.50XA Collapsed vertebra, not elsewhere classified, site unspecified, initial encounter for fracture; I13.0 Hypertensive heart and chronic kidney disease with heart failure and stage 1 through stage 4 chronic kidney disease, or unspecified chronic kidney disease; I82.4Z3 Acute embolism and thrombosis of unspecified deep veins of distal lower extremity, bilateral; R33.9 Retention of urine, unspecified; I27.20 Pulmonary hypertension, unspecified; L89.301 Pressure ulcer of unspecified buttock, stage 1; Z20.822 Contact with and (suspected) exposure to COVID-19; G89.29 Other chronic pain; M54.9 Dorsalgia, unspecified; F32.9 Major depressive disorder, single episode, unspecified; E78.5 Hyperlipidemia, unspecified; R65.20 Severe sepsis without septic shock; E03.9 Hypothyroidism, unspecified; E86.0 Dehydration; M34.9 Systemic sclerosis, unspecified; L89.151 Pressure ulcer of sacral region, stage 1; R53.81 Other malaise; L89.619 Pressure ulcer of right heel, unspecified stage; L89.519 Pressure ulcer of right ankle, unspecified stage; R41.0 Disorientation, unspecified; M34.1 CR(E)ST syndrome; Z66 Do not resuscitate; M34.0 Progressive systemic sclerosis; Z51.5 Encounter for palliative care; Z90.710 Acquired absence of both cervix and uterus; Z88.1 Allergy status to other antibiotic agents; Z87.891 Personal history of nicotine dependence; Z99.3 Dependence on wheelchair; Z68.20 Body mass index [BMI] 20.0-20.9, adult; Z82.49 Family history of ischemic heart disease and other diseases of the circulatory system
CPT/HCPCS: 10081; 10100

== ENCOUNTER 2021-02-25 19:00 | Inpatient (IN) | payer OTHER ==
[~2021-02-25 19:00] MED LIST changes: +BACTRIM DS TAB1 EACH PO; +FAMOTIDINE40 MG PO; +FLEXERIL PO; +NEURONTIN 300M300 M2 PO; +OXYCODONE-APAP1 EAC4 PO
[2021-02-25 21:18] VITALS: BP 137/91
--- NOTE | 2021-02-26 07:29 | NUR ---
PT ON COMFORT CARE.ON FENTANYL DRIP.GIVEN MORPHINEX2 FOR AIR HUNGER.PT TO CONTINUE WITH COMFORT CARE PER POC.
[2021-02-26 20:15] VITALS: BP 129/80
--- NOTE | 2021-02-27 08:28 | NUR ---
PT ON IN PATIENT HOSPICE CARE. FENTANYL DRIP CONTINUES. FREQUENT OBSERVATION.
[2021-02-27 08:57] VITALS: BP 105/99
--- NOTE | 2021-02-27 18:32 | NUR ---
PT ON COMFORT CARE. COMFORT MEASURES PROVIDED. FAMILY A THE BEDSIDE. UPDATED ON PT'S PLAN OF CARE.
[2021-02-27 20:15] VITALS: BP 104/51
--- NOTE | 2021-02-27 21:07 | NUR ---
family requested her to have lorazapam for anxiety. Patient assessed and med was given. plan to continue with comfort care
--- NOTE | 2021-02-27 23:04 | NUR ---
PATIENT CONTINUES WITH COMFORT CARE. FAMILY AT THE BEDSIDE. FREQUEST OBSERVATION
--- NOTE | 2021-02-28 05:55 | NUR ---
PATIENT CONTINUES WITH COMFORT CARE. FAMILY NOT AT BEDSIDE THROUGH THE NIGHT. THEY WILL RETURN IN THE MORNING.
--- NOTE | 2021-02-28 11:56 | NUR ---
Pt fent gtt was 60mcg/hr and increased to 80mcg/hr as per order and per Dr. Recio. Increased witnessed by charge nurse
--- NOTE | 2021-02-28 18:04 | NUR ---
Pt is unresponsive. Pt is on comfort care. Pt received medications and PRN medications for comfort. Pt has family at bedside. Pt has theodore in place. Pt currently on 1L of 02 per nasal cannula. Pt fent gtt increased this shift.
--- NOTE | 2021-03-01 01:17 | NUR ---
patients cares where assumed at shift change. patient was assessed. no meds to pass. patient is on a gtt of fentanyl for comfort care. family staied until nine oclock. continue with frequent observation
== END 2021-03-01 06:57 | DRG 871 ==
LOC: 2N 19:00
PROVIDERS: ADMIT Hospitalist; ATTEND Hospitalist
DX: A41.9 Sepsis, unspecified organism (principal); J96.01 Acute respiratory failure with hypoxia; I50.21 Acute systolic (congestive) heart failure; J18.9 Pneumonia, unspecified organism; E43 Unspecified severe protein-calorie malnutrition; N17.9 Acute kidney failure, unspecified; E87.1 Hypo-osmolality and hyponatremia; I13.0 Hypertensive heart and chronic kidney disease with heart failure and stage 1 through stage 4 chronic kidney disease, or unspecified chronic kidney disease; N18.4 Chronic kidney disease, stage 4 (severe); Z20.822 Contact with and (suspected) exposure to COVID-19; Z79.899 Other long term (current) drug therapy; I48.91 Unspecified atrial fibrillation; Z79.01 Long term (current) use of anticoagulants; M34.9 Systemic sclerosis, unspecified; M46.40 Discitis, unspecified, site unspecified; Z88.8 Allergy status to other drugs, medicaments and biological substances; E03.9 Hypothyroidism, unspecified; L89.899 Pressure ulcer of other site, unspecified stage; R33.9 Retention of urine, unspecified; F32.A Depression, unspecified; Z90.710 Acquired absence of both cervix and uterus
CPT/HCPCS: 10081; 10194